=== PATIENT | female | born 1980 | race Caucasian/White ===

== ENCOUNTER 2022-11-10 14:41 | Emergency (ER) | payer SELFPAY ==
[~2022-11-10] VITALS: Ht 175.2 cm; Wt 77.1 kg
[2022-11-10] MEDS ORDERED: METHOCARBAMOL500 M1 PO (16:54)
== END 2022-11-10 17:05 | disposition home or self-care (01) ==
LOC: ED 14:41
DX: S13.9XXA Sprain of joints and ligaments of unspecified parts of neck, initial encounter (principal); F17.200 Nicotine dependence, unspecified, uncomplicated; Z88.1 Allergy status to other antibiotic agents; X58.XXXA Exposure to other specified factors, initial encounter; Y93.89 Activity, other specified; Y92.89 Other specified places as the place of occurrence of the external cause; Y99.8 Other external cause status